=== PATIENT | male | born 1995 | race Caucasian/White ===

== ENCOUNTER 2022-11-10 08:49 | Emergency (ER) | payer MEDICAID, SELFPAY ==
[2022-11-10 09:50] VITALS: BP 139/81; PULSE 63; RESP 18; TEMP 36.2; O2SAT 100
--- NOTE | 2022-11-10 10:24 | ED.GENADULT ---
HPI - General Adult General Chief complaint: Abdominal Pain Stated complaint: nausea Time Seen by Provider: 11/10/22 10:24 Source: patient Mode of arrival: ambulatory Limitations: no limitations History of Present Illness HPI narrative: 27-year-old male patient presents to the [facility] with complaints of abdominal pain that it started abruptly at 3:00 a.m. this morning. Patient states he started having 8 out 10 abdominal pain. Patient complaining of nausea vomiting did have small bowel movement this morning. Patient denies of any fevers that he is aware of. Related Data Home Medications Medication Instructions Recorded Confirmed No Home Medications 11/10/22 11/10/22 Allergies Allergy/AdvReac Type Severity Reaction Status Date / Time No Known Allergies Allergy Verified 11/10/22 09:51 Review of Systems Review of Systems: CONSTITUTIONAL: Denies fever, chills, or sweats. EYES: Denies visual changes, redness, or discharge. ENT: Denies rhinorrhea, congestion, sore throat, or otalgia. CARDIOVASCULAR: Denies chest pain, palpitations, or edema. RESPIRATORY: Denies cough or dyspnea. GASTROINTESTINAL: Positive abdominal pain, nausea, vomiting, denies diarrhea. GENITOURINARY: Denies dysuria or hematuria. SKIN: Denies rash or itching. MUSCULOSKELETAL: Denies back pain, joint pain, or myalgia. NEUROLOGIC: Denies headache, numbness, or weakness. PSYCHIATRIC: Denies anxiety or depression. [facility] Past Medical History Medical History (Updated 11/10/22 @ 10:42 by CELENA Polo) Depression Seasonal allergies Social History Social History Smoking status: Never smoker Alcohol intake: never Comments At the time of my signature I agree with nursing past medical history, surgical, social, and family history. There is no relevant family history pertinent to the presenting complaint. Exam Narrative: GENERAL: ill-appearing, well-nourished, and in no acute distress. HEAD: Normocephalic, atraumatic. EYES: PERRLA and EOMI. ENT: Nares clear, no rhinorrhea or epistaxis. Mucous membranes moist. NECK: Supple. No lymphadenopathy CHEST: Clear to auscultation. No respiratory distress. HEART: Regular rate and rhythm. No murmur heard. Normal peripheral pulses. ABDOMEN: Soft, slightly distended. guarding, no rebound tenderness, or rigid. No pulsatilla masses. Bowel sounds present in all four quadrants. No organomegaly. Negative Hanks?s sign. positive periumbilical tenderness. positive tenderness to all 4 quadrants on palpation. No Supra public tenderness or distension. Good femoral pulses bilaterally. No hernia noted. No scars or surface trauma. EXTREMITIES: Normal range of motion. No edema. SKIN: Warm, dry, no rash. NEURO: No focal deficits. Alert and oriented x3. Course Course Level of Care: Express Care Visit Vital Signs Vital signs: Vital Signs Temperature 36.2 C L 11/10/22 09:50 Pulse Rate 63 11/10/22 09:50 Respiratory Rate 18 11/10/22 09:50 Blood Pressure 139/81 11/10/22 09:50 Pulse Oximetry 100 11/10/22 09:50 Oxygen Delivery Room Air 11/10/22 09:50 Temperature 36.2 C L 11/10/22 09:50 Pulse Rate 63 11/10/22 09:50 Respiratory Rate 18 11/10/22 09:50 Blood Pressure 139/81 11/10/22 09:50 Pulse Oximetry 100 11/10/22 09:50 Oxygen Delivery Room Air 11/10/22 09:50 Vital signs reviewed. The patient has been informed that they may have pre-hypertension or Hypertension based on a BP reading in the department. I recommend that the patient call the primary care provider listed on their discharge instructions or a physician of their choice this week to arrange follow up for further evaluation of possible pre-hypertension or Hypertension Transfer Transfered to: [facility], [place] Transportation: Other ( Private vehicle with family member) Transfer rationale: abdominal pain, 8 out 10 pain, tendern
== END 2022-11-10 10:35 | disposition short-term general hospital (02) ==
PROVIDERS: Emergency Provider Nurse Practitioner Family
DX: R10.9 Unspecified abdominal pain (principal)
CPT/HCPCS: 99212; G0463

== ENCOUNTER 2024-07-30 10:00 | Outpatient (RCR) | payer BC, SELFPAY ==
--- NOTE | 2024-06-25 11:04 | OPREHPOC ---
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
--- NOTE | 2024-06-25 11:04 | PTOPEVAL1 ---
Assessment and note entered by Myah Jansen, PT Evaluation Information Assessment Status Evaluation ICD-10 Condition Codes (PT) Pain in low back M54.50 Other ICD-10 Condition Codes ( G89.29 chronic pain, scoliosis; PT) Onset about past year Subjective Information chronic issues with neck and back pain, tightness no recent injury or trauma; have exhaustion and pain- have to lie down a lot at home; x ray: per pt- showed scoliosis; chiropractor in past-- adjustments helped; have not had any PT for back, neck pain; Activity: at [email or web address]- work at [employer]- walking, standing, helping guest; usually 8 hour shifts, but sometimes 12 hours; GOAL: improve stamina, be more active; Reported Pain Level Pain Score Self Report Additional Pain Score Comments pain range in the past week: 0-3/10; soreness, aching, tiredness-- neck, shoulders and low back weak, cannot hold head up anymore decrease pain: lie down in bed, neck stretching, back stretching increase pain: sit or standing - in same position 2 hours at best, then down to 20 min at time; sleeping is OK--pain not interfere with sleeping; Assessment PT Clinical Summary Braden has the diagnosis of scoliosis, back pain. He reports chronic history of neck and back pain. Oswestry self assessment functional scale rating of 6% limitation in activity level. He currently works at the [email or web address]- walking, standing for 8 hour shifts. Pain is increased with standing or sitting, in same position for 20 minutes at least and 2 hours at best. With the evaluation: Braden has a tall, lanky frame, with rounded posture and curvature of his spine; gait pattern of flat foot or toe walking, bilateral hip ER and decreased arm swing; decreased overall strength of trunk and hips, with ankle DF bilateral of 3/5; tightness of bilateral hamstrings. During the evaluation, did not increase pain reported with any of the motions or testing. Skilled PT services are indicated to increase trunk and LE strength, gait and balance skills, to improve posture and movement, and decrease progress of his scoliosis. Modalities PRN for pain and education for HEP and posture correction. Plan of Care Interventions Gait Training,Hot Pack/Cold Pack,Manual Therapy, Neuro Re-education,Patient/Caregiver Education, Therapeutic Activities,Therapeutic Exercise, Ultrasound PT Services Indicated Yes Treatment Frequency and 1-2x/wk for 8 visits Duration These treatments will address the objective and functional deficits as defined above. The patient will be advanced safely and appropriately in order for the patient to progress towards his/her prior level of function. Additional exercises will be introduced and as well as a comprehensive home exercise program upon discharge, if needed, ?to ensure carryover of functional gains achieved in the clinic. This treatment plan has been reviewed and agreement upon by the patient.
--- NOTE | 2024-07-30 10:47 | PTOPDC ---
Assessment and note entered by Myah Jansen, PT Assessment Status Discharge ICD-10 Condition Codes (PT) Pain in low back M54.50 Other ICD-10 Condition Codes ( G89.29 chronic pain, scoliosis; PT) Onset about past year Subjective Information back is better, but still have pain with doing more; Reported Pain Level Pain Score Self Report Additional Pain Score Comments in the past week: 0-2/10; back hurts, neck sore and tired increase pain: sitting with rounded posture, hurts neck and hard to hold head up straight- muscles are tired; shoveling snow, lifting and doing more exercises decrease pain: rest, change position Assessment PT Clinical Summary Markell has received 7 PT sessions. Compared to the initial eval: pain from 0-3/10 to 0-2/10; self assessment Oswestry rating from 6 to 14% limitation in activity level; increase flexibility over both hamstrings with supine SLR to 60'; increase strength of hips and trunk; improved gait pattern--now has heel strike with slight foot slap/decrease DF control; indep with HEP and education for posture/positioning. The goals were achieved. Discharge PT. He is to continue with HEP. Plan of Care PT Services Indicated No
== END 2024-07-30 15:18 | disposition home or self-care (01) ==
LOC: ANHPT 10:00
PROVIDERS: Visit Provider Nurse Practitioner Family
DX: M41.9 Scoliosis, unspecified (principal); M54.9 Dorsalgia, unspecified; G89.29 Other chronic pain
CPT/HCPCS: 97110; 97116; 97162; 97530